=== PATIENT | male | born 1965 | race Caucasian/White ===

== ENCOUNTER → 2016-12-16 | Outpatient (CLI) | payer OTHER ==
[~2016-12-16] MED LIST: AMRIX15 MG PO; DESYREL 50MG50 MG PO; FORTESTA10 MG/0.5 TP; NAPROSYN 2250 MG/TAB PO; TYLENOL 500MG500 MG PO
== END ==
LOC: COL.PUL 12-15 09:00
DX: R06.02 Shortness of breath (principal)

== ENCOUNTER → 2016-12-25 | Outpatient (CLI) | payer OTHER | LOC: COL.PUL 12:46 | DX: R06.02 Shortness of breath (principal) | CPT/HCPCS: J7674 ==

== ENCOUNTER 2016-12-30 05:10 | Inpatient (IN) | payer OTHER ==
[2016-12-30] VITALS (11 sets, daily range): BP systolic 98–134; BP diastolic 49–85; PULSE 61–85; TEMP 96.9–99.5
[~2016-12-30] VITALS: Ht 180.3 cm; Wt 114.1 kg
[2016-12-30] MEDS ORDERED: FORTESTA10 MG/0.5 TP (06:27)
[2016-12-30] MEDS ORDERED: TYLENOL 500MG500 MG PO (06:31)
[2016-12-30] MEDS ORDERED: AMRIX15 MG PO (06:31)
[2016-12-30] MEDS ORDERED: DESYREL 50MG50 MG PO (06:33)
[2016-12-30] MEDS ORDERED: NAPROSYN 2250 MG/TAB PO (06:37)
[2016-12-31 01:38] VITALS: BP 107/66; PULSE 71; TEMP 99
[2016-12-31 05:32] VITALS: BP 92/60; PULSE 67; TEMP 98.1
[2016-12-31 07:49] LABS: BASO % 0.2 % (0.0-2.0); EOS % 0.1 % (0-4.0); GRAN # 9.4 (1.4-6.5); GRAN % 76.3 % (42.2-75.2); HEMATOCRIT 41.4 % (42.0-52.0); HEMOGLOBIN 14.1 g/dl (13.5-18.0); LYMPH # 1.7 (1.2-3.4); LYMPH % 13.8 % (20.0-51.0); MEAN CELL VOLUME 95 fl (80.0-100.0); MEAN CORPUSCULAR HEMOGLOBIN 32 pg (27.0-31.0); MEAN CORPUSCULAR HGB CONC 34 g/dl (33.0-37.0); MEAN PLATELET VOLUME 10.1 fl (7.4-10.4); MONO # 1.1 (0.1-0.6); PLATELET COUNT 232 K/mm3 (130-400); RED BLOOD COUNT 4.38 M/mm3 (4.20-5.60); REDCELL DISTRIBUTION WIDTH-CV 13.5 % (11.5-14.5); WHITE BLOOD COUNT 12.3 K/mm3 (4.8-10.8)
[2016-12-31 08:00] LABS: CALCIUM 8.2 mg/dL (8.4-10.2); CREATININE, serum 1.08 mg/dL (0.66-1.25); POTASSIUM 3.8 mmol/L (3.4-5.0)
[2016-12-31 10:20] VITALS: BP 104/63; PULSE 77; TEMP 97.6
[2016-12-31 13:53] VITALS: BP 99/74; PULSE 66; TEMP 98.2
[2016-12-31 18:21] VITALS: BP 118/76; PULSE 79; TEMP 99.1
[2016-12-31 22:01] VITALS: BP 103/68; PULSE 76; TEMP 98.2
[2017-01-01] VITALS (7 sets, daily range): BP systolic 112–141; BP diastolic 57–85; PULSE 16–84; TEMP 98–99.6
[2017-01-02 05:30] VITALS: BP 115/64; PULSE 77; TEMP 97.5
== END 2017-01-02 10:26 | disposition home or self-care (01) | DRG 658 ==
LOC: SDCO 05:10 → SURG 05:11 → SDCO 12:20 → EDSTATUS 12:30 → SURG 12:30 → SDCO 12:30 → SURG 12:32 → SDCO 12:32 → SURG 12:33 → SDCO 12:33 → SURG 01-01 08:30
PROVIDERS: Urology
PROC: 8E0W4CZ Robotic Assisted Procedure of Trunk Region, Percutaneous Endoscopic Approach (ICD-10-PCS; 2016-12-30)
PROC: 0TB04ZZ Excision of Right Kidney, Percutaneous Endoscopic Approach (ICD-10-PCS; principal; 2016-12-30 07:30)
DX: C64.1 Malignant neoplasm of right kidney, except renal pelvis (principal); F17.290 Nicotine dependence, other tobacco product, uncomplicated
CPT/HCPCS: A4315; C1713; J0330; J0690; J1100; J1170; J1885; J2270; J2405; J2704; J2710; J3010; J7120

== ENCOUNTER → 2017-02-16 | Outpatient (CLI) | payer OTHER | LOC: COL.PUL 13:00 | DX: Z53.9 Procedure and treatment not carried out, unspecified reason (principal) ==